=== PATIENT | female | born 1965 | race Hispanic/Latino ===

== ENCOUNTER 2020-10-06 19:31 | Emergency (ER) | payer BC ==
[~2020-10-06] VITALS: Ht 152.4 cm; Wt 77.1 kg
[2020-10-06] MEDS ORDERED: ONDANSETRON HCL INJ 2MG/ML 2ML 2 MG/ML VIAL IV STA (20:14)
[2020-10-06] MEDS ORDERED: SODIUM CHLORIDE 0.9% 1000ML 1,000 ML IV SCH (20:15)
[2020-10-06] MEDS ORDERED: KETOROLAC TROMETHAMINE 30 MG/ML VIAL IV STA (21:58)
[2020-10-06] MEDS ORDERED: SODIUM CHLORIDE 0.9% 500ML 500 ML IV ONE (22:00)
[2020-10-06] MEDS ORDERED: MECLIZINE HCL 12.5 MG TAB PO ONE (22:00)
[2020-10-06] MEDS ORDERED: KETOROLAC TROMETHAMINE 30 MG/ML VIAL ONE (22:43)
[2020-10-06] MEDS ORDERED: SODIUM CHLORIDE 0.9% 500ML 500 ML ONE (22:44)
[2020-10-06] MEDS ORDERED: MECLIZINE HCL 12.5 MG TAB ONE (22:44)
[2020-10-06] MEDS ORDERED: HYDRALAZINE HCL 20 MG/ML VIAL IV ONE (23:00)
[2020-10-07] MEDS ORDERED: ONDANSETRON ODT8 MG PO (00:31)
[2020-10-07] MEDS ORDERED: MECLIZINE HCL12.5 MG PO ×2 (00:32→00:41)
[2020-10-07 00:42] VITALS: BP 141/76
== END 2020-10-07 00:55 | disposition home or self-care (01) ==
LOC: FSED 19:55
DX: R42 Dizziness and giddiness (principal); R11.2 Nausea with vomiting, unspecified; H92.02 Otalgia, left ear; I10 Essential (primary) hypertension; R94.31 Abnormal electrocardiogram [ECG] [EKG]
CPT/HCPCS: 70450; 80053; 81003; 82553; 84484; 85025; 93005; 96374; 99284; J1885; J2405; J7030; J7040; J8597